=== PATIENT | female | born 2000 | race Caucasian/White ===

== ENCOUNTER 2023-08-06 11:28 | Outpatient (AMB) | payer BC, SELFPAY ==
--- NOTE | 2023-08-06 12:17 | AM.OFFWIN_ITS ---
Intake Vital Signs 08/06/23 12:21 Height 5 ft 6 in Weight 150 lb BMI 24.2 BP 118/76 Blood Pressure Location Rt brachial Position Sitting Pulse 80 Pulse Source Pulse Oximeter Temp 97.9 F Temp Source Oral Pulse Oximetry (%) 98 Intake Visit Reasons: [employer]/congestion & Cough ([phone]) Intake Note: pt is here for cough and congeston had covid on the frst and symptoms have not resoleved. Patient Tobacco Use Status: Never used Tobacco Allergies peanut Allergy (Verified 08/06/23 12:17) Anaphylaxis tree nut Adverse Reaction (Verified 08/06/23 12:17) Anaphylaxis Do you need a note to return to daycare/school/sports/work: No HPI HPI Comments History of Present Illness Details 23 y/o female patient who presents to [facility] in clinic with c/o URI symptoms. Pt reports wheezing, SOB and cough. She was diagnosed with COVID 19 infection 07/09/23, and continues to have Coughing and body chills. H/o well controlled Asthma. 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 [facility] Social History Patient Tobacco Use Status: Never used Tobacco Review of Systems Const All systems reviewed & are unremarkable except as noted in HPI and below Physical Exam Vital Signs: Last Vital Signs Temp 97.9 F 08/06/23 12:21 Pulse 80 08/06/23 12:21 BP 118/76 08/06/23 12:21 Pulse Ox 98 08/06/23 12:21 BMI result Body Mass Index 24.2 Const General: comfortable and no acute distress Nutritional Appearance: well nourished Orientation/consciousness: patient oriented x3 HEENT Head: Yes normocephalic Ears: external ears normal and TM's normal bilaterally General nose exam: Abnormal mucous membranes and turbinates present boggy and erythematous Face and sinus: Yes sinuses nontender Mouth: moist mucous membranes Resp Effort & Inspection: normal respiratory effort, able to speak in complete sentences, audible wheezes and Actively coughing Auscultation: clear to auscultation bilaterally, no crackles, no rales, rhonchi and wheezes Cardio Rate: regular rate Rhythm: regular rhythm Neuro General: patient oriented x3 Assessment & Plan Assessment & Plan (1) Wheezing on auscultation: Code(s): R06.2 - Wheezing Plan: - Duoneb in office - Prednisone (2) Asthma with acute exacerbation in adult: Code(s): J45.901 - Unspecified asthma with (acute) exacerbation Qualifiers: Asthma persistence: persistent Asthma severity: moderate Qualified Code(s): J45.41 - Moderate persistent asthma with (acute) exacerbation Plan: - Alburetol inhaler - Monterlucast Orders: Orders AMB Nebulizer Treatment Today J45.901 - Unspecified asthma with (acute) exacerbation, R06.2 - Wheezing SARS-CoV2/FLU/RSV Today J45.901 - Unspecified asthma with (acute) exacerbation, R06.2 - Wheezing Medications: New ipratropium-albuterol 0.5 mg-3 mg(2.5 mg base)/3 mL 3 mL inhalation ONCE 3 mL 0RF J45.901 - Unspecified asthma with (acute) exacerbation, R06.2 - Wheezing prednisone 50 mg PO DAILY 5 days 5 tabs 0RF J45.901 - Unspecified asthma with (acute) exacerbation, R06.2 - Wheezing albuterol sulfate 90 mcg/actuation 2 puffs inhalation Q4-6H PRN 8.5 grams 0RF shortness of breath or wheezing montelukast 10 mg PO BEDTIME 60 tabs 0RF J45.901 - Unspecified asthma with (acute) exacerbation, R06.2 - Wheezing Coding Level of Care Code New Pt Level 4 (88573) Diagnoses Wheezing on auscultation R06.2 Moderate persistent asthma with acute exacerbation in adult J45.41 Asthma persistence: persistent Asthma severity: moderate Time Spent (min) 15
[2023-08-06 12:21] VITALS: BP 118/76; PULSE 80; TEMP 36.6; O2SAT 98; BMI 24.2
== END 2023-08-06 13:17 | disposition home or self-care (01) ==
PROVIDERS: Visit Provider Nurse Practitioner Family
DX: J45.41 Moderate persistent asthma with (acute) exacerbation (principal)
CPT/HCPCS: 99204

== ENCOUNTER 2023-08-06 12:44 | Outpatient (REF) | payer BC, SELFPAY ==
[2023-08-06 18:06] LABS: Influenza A PCR NEGATIVE (Negative); Influenza B PCR NEGATIVE (Negative); Resp Syncy Virus RNA Qual PCR NEGATIVE (Negative); SARS COV2 PCR INHOUSE NEGATIVE (Negative)
== END 2023-08-06 12:45 | disposition home or self-care (01) ==
LOC: HO.LAB 12:44
PROVIDERS: Visit Provider Nurse Practitioner Family
DX: Z11.52 Encounter for screening for COVID-19 (principal); Z20.822 Contact with and (suspected) exposure to COVID-19; J45.901 Unspecified asthma with (acute) exacerbation
CPT/HCPCS: 0241U

== ENCOUNTER 2024-10-07 15:55 | Emergency (ER) | payer OTHER, SELFPAY ==
--- NOTE | ~2024-10-07 | XR_ITS ---
CLINICAL HISTORY: Coughing. Pneumonia? 1 view chest x-ray Comparison: None Findings: There is bronchial wall thickening. No consolidation, pleural effusion or pneumothorax. Normal size heart. No acute fracture. IMPRESSION: 1. Central bronchial wall thickening, which can be seen with asthma, reactive airways process or viral illness. 2. No superimposed infiltrate or consolidation. This document has been electronically signed by: Felicitas Platt DO on 10/07/2024 17:43:13
--- NOTE | 2024-10-07 16:00 | PC.NURSE ---
Patient is a 24 yo female with pmh of asthma presents to the ED for asthma exacerbation. patient states the past 3 days of coughing, exposure to pollen, and wheezing. Alert and oriented. Lungs with diffuse E/I wheezes. Respirations even and non-labored. Patient states her chest feels tight when breathing. Abdomen flat soft, and non-tender.
[2024-10-07 16:09] VITALS: BP 128/77; PULSE 83; RESP 18; TEMP 36.9; O2SAT 100; BMI 22.6
[2024-10-07 16:17] VITALS: O2SAT 100
--- NOTE | 2024-10-07 16:41 | ED_ITS ---
HPI - General Adult General Chief complaint: Upper Respiratory Symptoms Stated complaint: Asthma Time Seen by Provider: 10/07/24 16:02 Source: patient Mode of arrival: ambulatory Limitations: no limitations History of Present Illness ED Provider: Sean Bland HPI narrative: 24 yold female with pmh of asthma presents to the ED for asthma exacerbation. patient states the past 3 days of coughing, exposure to pollen, and wheezing. Patient denies any chest pain, leg swelling, pitting edema, calf pain, pleurisy, recent long travel, recent surgery, Or any estrogen control pill use. P atient states no relief with albuterol inhaler. Related Data Home Medications ?Medication ?Instructions ?Recorded ?Confirmed albuterol sulfate 90 mcg/actuation 2 puff inhalation Q6H PRN 08/06/23 aerosol inhaler bupropion HCl 300 mg 24 hr tablet, 300 mg PO QAM 08/06/23 extended release (Wellbutrin XL) Previous Rx's ?Medication ?Instructions ?Recorded albuterol sulfate 90 mcg/actuation 2 puff inhalation Q4-6H PRN 08/06/23 aerosol inhaler shortness of breath or wheezing #8.5 grams prednisone 50 mg tablet 50 mg PO DAILY 5 days #5 tabs 08/06/23 montelukast 10 mg tablet 10 mg PO BEDTIME #90 tabs 08/28/23 albuterol sulfate 90 mcg/actuation 2 puff inhalation Q4-6H PRN 10/07/24 aerosol inhaler shortness of breath or wheezing #8.5 grams prednisone 20 mg tablet 40 mg (2 x 20 mg) PO DAILY 5 days 10/07/24 #10 tabs Allergies Allergy/AdvReac Type Severity Reaction Status Date / Time peanut Allergy Anaphylaxis Verified 10/07/24 16:11 tree nut AdvReac Anaphylaxis Verified 10/07/24 16:11 Review of Systems Review of Systems: Coughing and wheezing Yes all other systems are reviewed and are negative PMFSH Social History Social History Patient Tobacco Use Status: Never used Tobacco Physical Exam ED Vital Signs: Vital Signs - 24 hr 10/07/24 18:21 10/07/24 19:15 Temperature 98.3 F 98.3 F Pulse Rate 89 89 Respiratory Rate 16 16 Blood Pressure 121/73 121/73 Pulse Oximetry 96 96 Oxygen Delivery Method Room Air Room Air BMI result Body Mass Index 22.6 Const General: cooperative, healthy appearing, comfortable, no acute distress, well developed, alert, awake and Physically active Orientation/consciousness: patient oriented x3 [facility] Head: Yes normal to inspection, Yes No palpable skull fracture present, Yes normocephalic and Yes atraumatic Ears: hearing grossly normal bilaterally, external ears normal, TM's normal bilaterally, TM normal on the right, TM normal on the left and EAC's normal Throat: Yes posterior oropharynx normal, Yes tonsils normal and Yes uvula mi dline Eyes General: appearance normal, both eyes and all related structures Neck Neck: Yes normal visual inspection, Yes full ROM, Yes no lymphadenopathy, Yes no meningeal signs, Yes trachea midline, Yes supple, No anterior neck swelling and No tender Chest Chest palpation & inspection: normal inspection of the chest and normal palpation of entire chest wall Resp Effort & Inspection: normal respiratory effort and able to speak in complete sentences Auscultation: wheezes expiratory wheezes and throughout Cardio Jugular venous distension: no JVD Heart sounds: S1 normal heart sound present and S2 normal heart sound present GI Inspection: Yes normal to inspection Palpation (GI): Soft to palpation, not firm, nontender, no guarding and not rigid General: Yes no CVA tenderness Back/Spine/Pelvis Back: no CVA tenderness and No back tenderness Skin General skin exam: no rashes or lesions noted, elasticity normal and turgor normal Neuro General: patient oriented x3, gait normal, tone normal, moves all extremities, Normal light touch and pain sensation, no meningeal signs, no focal motor deficits, CN's II-XI intact bilaterally and normal sensation to monofilament Extrem Other: bilateral lower extremity negative for swelling, pitting edema, or calf tenderness. General: Yes normal to inspection, Yes full ROM and Yes capillary refill normal Psych Appearance: grossly normal, well kempt and not disheveled Medications Administered Discontinued Medications Generic Name Dose Route Start Last Admin Trade Name Freq PRN Reason Stop Dose Admin Albuterol Sulfate 2.5 mg/ 0 mg 10/07/24 16:53 10/07/24 16:57 Albuterol/Ipratropium 3 ml INHALE 10/07/24 16:54 1 dose ONCE ONE Administration Prednisone 60 mg 10/07/24 16:40 10/07/24 17:11 Prednisone 20 Mg Tablet PO 10/07/24 16:41 60 mg ONCE ONE Administration Medical Decision Making Medical Decision Making [facility] Narrative: 24-year-old female presents to the ED for URI asthma exacerbation. Lungs are significant for wheezing patient was given ED broncho dilator albuterol treatment and steroids. Patient felt better. Wheezing resolved 6:37pm: patient feels better after albuterol and steroids. Lungs are clear. COVID influenza SARs strep came back negative. Chest x-ray negative for pneumonia and it shows bronchial thickening for asthma viral illness. Not suspecting PE, CHF, [place], pericarditis, myocarditis,or any other life-threatening etiology. Patient explained worrisome signs and informed to return to the ED immediately. Differential Diagnosis Differential Diagnoses: The differential diagnosis associated with the presentation includes ( Asthma, pneumonia, COVID, RSV, influenza strep) Admission/Observation Consideration of admission/observation: Escalation of care including admission/observation considered Lab Data [facility] Lab Attestation statement: I reviewed the patient's lab results. Labs: Lab Results 10/07/24 10/07/24 Range/Units 16:57 17:57 Influenza Type A (PCR) NEGATIVE (Negative) Influenza Type B (PCR) NEGATIVE (Negative) RSV RNA Qual (PCR) NEGATIVE (Negative) SARS-CoV-2 RNA (RT-PCR) NEGATIVE (Negative) S. pyogenes GrpA GINO Negative (Negative) Independent Interpretation I performed an independent interpretation of an: Plain X-Ray Radiology Impression Discussion of test interpretation with radiology: I have reviewed the radiologist's reading. Independent Historian Clinical information obtained from an independent historian. History obtained from or confirmed by: Other (patient) Discharge Plan Discharge Clinical Impression: Asthma Patient Disposition: Home, Self-Care Instructions: Asthma (ED) Additional Instructions: you came back negative for influenza, COVID, RSV, and strep. Chest x-ray came back negative for pneumonia, but does show signs of asthma/viral illness. Recommend follow up with primary care provider. Return to the ED immediately for any chest pain, shortness of breath, weakness, dizziness, coughing up blood, calf pain, leg pain, chest pain on inspiration, or any other concerning symptoms. Prescriptions: New prednisone 20 mg tablet 40 mg PO DAILY 5 Days Qty: 10 0RF albuterol sulfate 90 mcg/actuation HFA aerosol inhaler 2 puff inhalation Q4-6H PRN (Reason: shortness of breath or wheezing) Qty: 8.5 0RF No Action montelukast 10 mg tablet 10 mg PO BEDTIME Qty: 90 1RF ipratropium-albuterol 0.5 mg-3 mg(2.5 mg base)/3 mL solution for nebulization 3 ml inhalation ONCE Qty: 3 0RF bupropion HCl [Wellbutrin XL] 300 mg tablet extended release 24 hr 300 mg PO QAM albuterol sulfate 90 mcg/actuation HFA aerosol inhaler 2 puff inhalation Q6H PRN prednisone 50 mg tablet 50 mg PO DAILY 5 Days Qty: 5 0RF albuterol sulfate 90 mcg/actuation HFA aerosol inhaler 2 puff inhalation Q4-6H PRN (Reason: shortness of breath or wheezing) Qty: 8.5 0RF Stand Alone Forms: Work/School Release Interventions: ED Discharge Assessment Last Done: 10/07/24 19:15 Discharge Date/Time: 10/07/24 19:17 Print Language: Kazakh
[2024-10-07] MEDS: Albuterol Sulfate 2.5 MG, Albuterol/Iprat 2.5/0.5MG 3 ML 3 ML INHALE (16:57)
[2024-10-07 17:00] VITALS: BP 123/80; PULSE 88; RESP 16; TEMP 36.9; O2SAT 100
--- NOTE | 2024-10-07 17:00 | MHC.EDTECH ---
This pct assumed care of Patient ,vitals taken ,rsv/covid swab collected and sent to lab .
[2024-10-07 17:01] VITALS: PULSE 78; RESP 18; O2SAT 100
[2024-10-07] MEDS: predniSONE 20 MG TABLET 60 MG PO (17:11)
--- NOTE | 2024-10-07 17:58 | MHC.EDTECH ---
Patient strep swab collected and sent to lab .
[2024-10-07 18:13] LABS: IDNOW Serial# 55D5AD1C; Strep A Nucleic Acid Negative (Negative)
[2024-10-07 18:18] LABS: Influenza A PCR NEGATIVE (Negative); Influenza B PCR NEGATIVE (Negative); Resp Syncy Virus RNA Qual PCR NEGATIVE (Negative); SARS COV2 PCR INHOUSE NEGATIVE (Negative)
[2024-10-07 18:21] VITALS: BP 121/73; PULSE 89; RESP 16; TEMP 36.8; O2SAT 96
[2024-10-07 19:15] VITALS: BP 121/73; PULSE 89; RESP 16; TEMP 36.8; O2SAT 96
== END 2024-10-07 19:17 | disposition home or self-care (01) ==
PROVIDERS: Physician Assistant; Emergency Provider Emergency Medicine
DX: J45.909 Unspecified asthma, uncomplicated (principal); R05.9 Cough, unspecified; Z79.899 Other long term (current) drug therapy; Z03.818 Encounter for observation for suspected exposure to other biological agents ruled out
CPT/HCPCS: 0241U; 71045; 87651; 94640; 99283; 99284; 99285

== ENCOUNTER → 2024-10-07 16:40 | Outpatient (BNV) | payer SELFPAY | PROVIDERS: Emergency Provider Emergency Medicine; Visit Provider Radiology Diagnostic Radiology | DX: J98.09 Other diseases of bronchus, not elsewhere classified (principal) | CPT/HCPCS: 71045 ==

== ENCOUNTER 2025-02-22 09:11 | Outpatient (AMB) | payer OTHER, SELFPAY ==
--- NOTE | 2025-02-22 09:13 | MHC.OFFWIV ---
Intake Vital Signs 02/22/25 09:14 Height 5 ft 6 in Weight 148 lb BMI 23.9 BP 126/80 Blood Pressure Location Lt brachial Position Sitting Pulse 87 Pulse Source Pulse Oximeter Temp 98.0 F Temp Source Oral Pulse Oximetry (%) 98 Oxygen Delivery Method Room Air Intake Visit Reasons: ep shortness of breath Intake Note: pt presents with SOB, wheezing, coughing for 3 days- reports h/o asthma Patient Tobacco Use Status: Never used Tobacco Allergies peanut Allergy (Verified 02/22/25 09:14) Anaphylaxis tree nut Adverse Reaction (Verified 02/22/25 09:14) Anaphylaxis Do you need a note to return to daycare/school/sports/work: No HPI HPI Comments History of Present Illness Details History - The patient is a 24-year-old female presenting with difficulty breathing and wheezing. - She has a history of asthma, currently managed with albuterol, which has been ineffective recently. - The patient reports increased use of albuterol due to SOB and wheezing. - She has allergies and had post nasal drip. - She states that she now has congestion in her chest and has been coughing. - She experienced bronchitis last winter, and her respiratory therapist advised increasing albuterol use during exacerbations. - The patient describes a productive cough with yellow sputum and denies fever. 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 - The patient is preparing for a marathon in three weeks, which may be impacted by her current respiratory issues. - She denies chest pain, abd pain, n/v/d, WARD, sore throat, or ear pain. Physical Exam General: Cooperative, healthy appearing, comfortable and no acute distress Orientation/consciousness: Patient oriented x3 Limitations: No limitations Head: Normal to inspection Ears: Hearing grossly normal bilaterally, external ears normal and TM's normal bilaterally Nose: Normal external nose present, normal nares present, and no nasal discharge present. Face and sinus: Sinuses nontender to palpation. Mouth: Normal oral and palatal mucosa present and moist mucous membranes noted. Throat: Tonsils normal. Uvula is midline. Posterior oropharynx with erythema and no exudates. Neck: Normal visual inspection, full ROM. No lymphadenopathy noted. Respiratory: Wheezing noted. Normal respiratory effort, able to speak in complete sentences. No respiratory distress, not tachypneic, no tripod positioning and no use of accessory muscles. Cardiovascular: Regular rate and rhythm. Normal S1 and S2 Skin: No rashes or lesions noted Patient was informed and verbally consented to the use of an ambient scribe for clinic note documentation during this visit [facility] Social History Patient Tobacco Use Status: Never used Tobacco Review of Systems Const All systems reviewed & are unremarkable except as noted in HPI and below Physical Exam Vital Signs: Last Vital Signs Temp 98.0 F 02/22/25 09:14 Pulse 87 02/22/25 09:14 BP 126/80 02/22/25 09:14 Pulse Ox 98 02/22/25 09:14 Oxygen Delivery Method Room Air 02/22/25 09:14 BMI result Body Mass Index 23.9 Office Procedures Nebulizer Treatment Nebulizer Treatment [id number] RX initial, or Nebulizer Subsequent Treatment Office Meds albuterol sulfate 2.5 mg/3 mL (0.083 %) solution for nebulization Performing Provider: Ro Barrios PA-C Performing Location: [facility] Administered by: Ro Barrios PA-C on 02/22/25 10:07 Dose Route Admin Location Dispensed Lot Number Expiration Date [place] Health Care Technician 2.5 mg inhalation 3 mL [id number] 07/08/26 [id number] [employer] ipratropium 0.5 mg-albuterol 3 mg (2.5 mg base)/3 mL nebulization soln Performing Provider: Ro Barrios PA-C Performing Location: [facility] Documented (not given) by: Ro Barrios PA-C on 02/22/25 10:07 Dose Route Admin Location Dispensed Lot Number Expiration Date N[employer] Health Care Technician 3 mL inhalation mL Assessment & Plan Assessment & Plan (1) SOB (shortness of breath): Code(s): R06.02 - Shortness of breath Plan Most likely asthma exacerbation vs URI vs bronchitis plan - will give a nebulizer treatment in the office - continue with albuterol - prednisone for 5 days - cough medication as needed - follow up with PCP Orders: Orders AMB Nebulizer Treatment Today R05.9 - Cough, unspecified Medications: New ipratropium-albuterol 0.5 mg-3 mg(2.5 mg base)/3 mL 3 mL inhalation ONCE 3 mL 0RF R05.9 - Cough, unspecified prednisone 40 mg (2 x 20 mg) PO DAILY 10 tabs 0RF 5 days benzonatate 100 mg PO bid-tid PRN 21 caps 0RF Cough 7 days Coding Level of Care Code Est Pt Level 4 (54538) Diagnoses SOB (shortness of breath) R06.02 CPT Codes Nebulizer Treatment - Nebulizer Treatment, initial or subsequent: [id number] RX initial, or Nebulizer Subsequent Treatment ([id number])
[2025-02-22 09:14] VITALS: BP 126/80; PULSE 87; TEMP 36.7; O2SAT 98; BMI 23.9
== END 2025-02-22 10:31 | disposition home or self-care (01) ==
PROVIDERS: Visit Provider Physician Assistant Medical
DX: R06.02 Shortness of breath (principal); R05.9 Cough, unspecified

== ENCOUNTER 2025-02-22 09:11 | Outpatient (REF) | payer OTHER, SELFPAY | END 2025-02-22 09:12 | disposition home or self-care (01) | LOC: HO.LNP 09:11 | PROVIDERS: Visit Provider Physician Assistant Medical | DX: R06.02 Shortness of breath (principal); R05.9 Cough, unspecified | CPT/HCPCS: 94640 ==

== ENCOUNTER 2025-02-22 15:51 | Outpatient (REF) | payer OTHER, SELFPAY ==
[2025-02-23 11:05] LABS: Chlamydia pneumoniae PCR Not Detected (Not Detect.); Coronavirus 229E PCR Not Detected (Not Detect.); Coronavirus HKU1 PCR Not Detected (Not Detect.); Coronavirus NL63 PCR Not Detected (Not Detect.); Coronavirus OC43 PCR Not Detected (Not Detect.); RSV PCR Not Detected (Not Detect.); Rhino/Enterovirus PCR Detected (Not Detect.)
[2025-02-23 11:24] LABS: Influenza A H1 PCR Not Detected (Not Detect.); Influenza A H1-2009 PCR Not Detected (Not Detect.); Influenza A H3 PCR Not Detected (Not Detect.); SARS-CoV-2 PCR Not Detected (Not Detect.)
== END 2025-02-22 15:52 | disposition home or self-care (01) ==
LOC: HO.LAB 15:51
PROVIDERS: Visit Provider Physician Assistant Medical
DX: J06.9 Acute upper respiratory infection, unspecified (principal)
CPT/HCPCS: 87633